=== PATIENT | male | born 1975 | race Two or more races ===

== ENCOUNTER 2024-08-29 21:28 | Inpatient (IN) | payer OTHER ==
[~2024-08-29] VITALS: Ht 172.7 cm; Wt 102.7 kg
[~2024-08-29 21:28] MED LIST: APRE30TA PO; ATOR80TA PO; CLOP75TA70 PO; LISI-275 PO
[2024-08-29 21:36] VITALS: PULSE 66; RESP 14; O2SAT 97
[2024-08-29] MEDS: ONDANSETRON HCL 4 MG/2 ML VIAL IV ONE (21:44)
[2024-08-29] MEDS: MORPHINE SULFATE 4 MG/ML SYR/VIAL IV ONE (21:44)
[2024-08-29] MEDS ORDERED: HEPARIN DRIP/D5W 100UNITS/ML 250 ML IV SCH (21:45)
[2024-08-29] MEDS: HEPARIN SODIUM (PORCINE) 5000 UNITS/ML 1ML VIAL IV ONE (21:45)
[2024-08-29] MEDS: SODIUM CHLORIDE 0.9% 1,000 ML IV ONE (21:48)
[2024-08-29 21:49] LABS: Basophils # (auto) 0.1 10 ^3/uL (0-0.2); Basophils % (auto) 0.4 % (0.0-2.0); Eosinophils # (auto) 0.1 10 ^3/uL (0-0.8); Eosinophils % (auto) 0.4 % (0.0-7.0); Hematocrit 47.5 % (41.0-53.0); Hemoglobin 16.2 g/dL (13.5-17.5); Lymphocytes # (auto) 1.8 10 ^3/uL (0.4-5.4); Lymphocytes % (auto) 11.5 % (10.0-50.0); Mean Corpuscular Hemoglobin 30.3 pg (28.0-32.0); Mean Corpuscular Volume 89.2 fL (80.0-100.0); Monocytes # (auto) 0.7 10 ^3/uL (0-1.3); Monocytes % (auto) 4.4 % (0.0-12.0); Neutrophils # (auto) 12.9 10 ^3/uL (1.6-8.6); Neutrophils % (auto) 83.3 % (37.0-80.0); Platelet Count (auto) 225 10^3/uL (140-450); Red Blood Cells 5.33 10^6/uL (4.5-5.90); Red Cell Distribution Width 13.7 % (11.8-14.3); White Blood Cell 15.6 10^3/uL (4.4-10.8)
[2024-08-29 21:58] LABS: Chloride 107 mmol/L (98-107); Potassium 4.4 mmol/L (3.5-5.1); Sodium 140 mmol/L (136-145)
[2024-08-29 21:59] LABS: Anion Gap 9 (5-15); Carbon Dioxide 24 mmol/L (20-31)
[2024-08-29 22:00] LABS: Calcium 10.1 mg/dL (8.7-10.4)
[2024-08-29 22:04] LABS: BUN/Creatinine Ratio 9.5 (10.0-20.0); Blood Urea Nitrogen 12 mg/dL (9-23); Glucose 165 mg/dL (74-106)
[2024-08-29] MEDS: ANGIOMAX 250 MG VIAL IV ONE (22:04)
[2024-08-29] MEDS: fentaNYL CITRATE 100 MCG/2 ML VL ONE (22:04)
[2024-08-29] MEDS: SODIUM CHL 0.9% 50 ML ONE (22:04)
[2024-08-29] MEDS: MIDAZOLAM HCL 2MG/2ML 2ml VIAL (1mg/ml) ONE (22:04)
[2024-08-29] MEDS: HEPARIN IN NS 1000Units/500mL 1,500 ML ONE (22:05)
[2024-08-29] MEDS: IODIXANOL 320MG/ML 100ML BTL IV ONE (22:05)
[2024-08-29] MEDS: LIDOCAINE 2%HCL (LOCAL ANESTH.) INJ 20ML MDV ONE (22:05)
[2024-08-29 22:24] LABS: Prothrombin Time 10.6 sec (9.3-11.8)
[2024-08-29] MEDS: ATROPINE SULF 1 MG/10ml SYR ONE (22:40)
[2024-08-29 23:20] VITALS: BP 135/87; PULSE 77; RESP 20; TEMP 98.1; O2SAT 100
[2024-08-29] MEDS: CLOPIDOGREL BISULFATE 75 MG TAB ONE ×2 (23:28)
[2024-08-29] MEDS ORDERED: NITROGLYCERIN 0.4 MG SL TAB SL PRN (23:30)
[2024-08-29 23:35] VITALS: BP 134/88; PULSE 64; RESP 20; O2SAT 100
[2024-08-29 23:50] VITALS: BP 139/85; PULSE 61; RESP 20; O2SAT 100
[2024-08-30] VITALS (9 sets, daily range): BP systolic 100–131; BP diastolic 51–95; PULSE 56–80; RESP 18–20; TEMP 98–98.8; O2SAT 94–100
[2024-08-30] MEDS: MORPHINE SULFATE INJ 2 MG/ml SYRG IV PRN ×2 (00:54→14:35)
[2024-08-30] MEDS: SODIUM CHLORIDE 0.9% 1,000 ML IV SCH (00:54)
[2024-08-30] MEDS: HYDROcodone-ACET 5/325MG TAB PO PRN (06:10)
[2024-08-30 07:16] LABS: Basophils # (auto) 0 10 ^3/uL (0-0.2); Basophils % (auto) 0.1 % (0.0-2.0); Eosinophils # (auto) 0 10 ^3/uL (0-0.8); Hematocrit 43.4 % (41.0-53.0); Hemoglobin 14.6 g/dL (13.5-17.5); Lymphocytes % (auto) 6.4 % (10.0-50.0); Mean Corpuscular Hemoglobin 30.3 pg (28.0-32.0); Mean Corpuscular Hgb Conc. 33.5 g/dL (32.0-36.0); Mean Corpuscular Volume 90.3 fL (80.0-100.0); Monocytes # (auto) 0.4 10 ^3/uL (0-1.3); Monocytes % (auto) 2.9 % (0.0-12.0); Neutrophils # (auto) 13.6 10 ^3/uL (1.6-8.6); Neutrophils % (auto) 90.6 % (37.0-80.0); Nucleated Red Blood Cells % 0.1 %; Platelet Count (auto) 193 10^3/uL (140-450); Red Blood Cells 4.81 10^6/uL (4.5-5.90); Red Cell Distribution Width 13.7 % (11.8-14.3)
[2024-08-30 07:18] LABS: Alanine Aminotransferase 28 U/L (7-40); Alkaline Phosphatase 97 U/L (46-116); Anion Gap 11 (5-15); Aspartate Aminotransferase 59 U/L (13-40); BUN/Creatinine Ratio 11.2 (10.0-20.0); Blood Urea Nitrogen 13 mg/dL (9-23); Calcium 9.7 mg/dL (8.7-10.4); Carbon Dioxide 23 mmol/L (20-31); Chloride 107 mmol/L (98-107); Glucose 185 mg/dL (74-106); Potassium 3.7 mmol/L (3.5-5.1); Sodium 141 mmol/L (136-145)
[2024-08-30 07:19] LABS: Bilirubin, Total 0.7 mg/dL (0.2-1.0); Total Protein 6.9 g/dL (5.7-8.2)
[2024-08-30] MEDS: ASPirin 81 mg TAB PO SCH (09:35)
[2024-08-30] MEDS: cefTRIAXone 1GM/50ML D5W 50 ML IV SCH (09:36)
[2024-08-30] MEDS: CLOPIDOGREL BISULFATE 75 MG TAB PO SCH (09:36)
[2024-08-30] MEDS: ATORVASTATIN 20 MG TAB PO SCH (09:36)
[2024-08-30] MEDS: METOPROLOL SUCCINATE XL 50 MG TAB PO SCH (09:38)
[2024-08-30] MEDS: ENOXAPARIN SOD 40 MG/0.4 ML SYRINGE SC SCH (09:54)
[2024-08-30] MEDS: FAMOTIDINE (10MG/ML) 2ML VL IV ONE (13:53)
[2024-08-30] MEDS: EPTIFIBATIDE DRIP(0.75MG/ML) 100 ML IV SCH ×2 (15:52→20:25)
[2024-08-31] MEDS: TEMAZEPAM 15 MG CAP PO PRN (00:03)
[2024-08-31 05:00] VITALS: BP 109/67; PULSE 60; RESP 16; TEMP 98.7; O2SAT 97
[2024-08-31 05:50] LABS: Alanine Aminotransferase 29 U/L (7-40); Alkaline Phosphatase 83 U/L (46-116); Anion Gap 6 (5-15); Aspartate Aminotransferase 101 U/L (13-40); Blood Urea Nitrogen 10 mg/dL (9-23); Calcium 9.2 mg/dL (8.7-10.4); Carbon Dioxide 26 mmol/L (20-31); Chloride 107 mmol/L (98-107); Glucose 94 mg/dL (74-106); Potassium 3.6 mmol/L (3.5-5.1); Sodium 139 mmol/L (136-145)
[2024-08-31 05:51] LABS: Basophils # (auto) 0 10 ^3/uL (0-0.2); Basophils % (auto) 0.3 % (0.0-2.0); Eosinophils # (auto) 0 10 ^3/uL (0-0.8); Eosinophils % (auto) 0.3 % (0.0-7.0); Hematocrit 42.7 % (41.0-53.0); Hemoglobin 14.4 g/dL (13.5-17.5); Lymphocytes # (auto) 2.2 10 ^3/uL (0.4-5.4); Lymphocytes % (auto) 17.2 % (10.0-50.0); Mean Corpuscular Hemoglobin 30.8 pg (28.0-32.0); Mean Corpuscular Hgb Conc. 33.7 g/dL (32.0-36.0); Mean Corpuscular Volume 91.2 fL (80.0-100.0); Monocytes % (auto) 7.4 % (0.0-12.0); Neutrophils # (auto) 9.8 10 ^3/uL (1.6-8.6); Neutrophils % (auto) 74.8 % (37.0-80.0); Nucleated Red Blood Cells % 0.1 %; Platelet Count (auto) 170 10^3/uL (140-450); Red Blood Cells 4.69 10^6/uL (4.5-5.90); Red Cell Distribution Width 13.9 % (11.8-14.3); Total Protein 6.5 g/dL (5.7-8.2); White Blood Cell 13.1 10^3/uL (4.4-10.8)
[2024-08-31 08:00] VITALS: PULSE 60
[2024-08-31 09:00] VITALS: BP 124/76; PULSE 63; RESP 20; TEMP 98.8; O2SAT 95
[2024-08-31] MEDS: POTASSIUM EFFERVESENT TAB 25 MEQ PO ONE (10:48)
[2024-08-31] MEDS: HYDROcodone-ACET 5/325MG TAB PO PRN (10:48)
[2024-08-31 10:54] LABS: Triglycerides 92 mg/dL (< 150)
[2024-08-31 10:55] LABS: LDL Cholesterol 74 mg/dL (< 100)
[2024-08-31 10:56] LABS: Cholesterol 113 mg/dL (< 200); HDL Cholesterol 33 mg/dL (40-59)
[2024-08-31 12:29] LABS: Urine Bacteria None Seen /hpf (None Seen)
[2024-08-31 12:43] LABS: COVID19 ANTIGEN SOFIA FIA NEGATIVE (NEGATIVE)
[2024-08-31 12:46] LABS: Urine Blood Negative /uL (Negative); Urine Clarity Clear (Clear); Urine Color Light-Yellow (Yellow); Urine Protein, UAD Negative (Negative); Urine Specific Gravity 1.015 (1.001-1.035); Urine Urobilinogen Normal (Negative); Urine WBC <1 /hpf (0 - 3)
[2024-08-31 13:00] VITALS: BP 100/63; PULSE 64; RESP 20; TEMP 98.8; O2SAT 93
[2024-08-31 13:05] LABS: Amphetamine Screen, Urine Neg (NEGATIVE); Benzodiazephine Screen, Urine Pos (NEGATIVE)
[2024-08-31 13:06] LABS: Barbiturate Scree,Urine Neg (NEGATIVE); Cannabinoid Screen, Urine Neg (NEGATIVE); Cocaine Screen, Urine Neg (NEGATIVE); Opiate Scree,Urine Neg (NEGATIVE); Phencyclidine Screen, Urine Neg (NEGATIVE)
[2024-08-31] MEDS: ACETAMINOPHEN 500 MG TAB PO PRN (14:27)
[2024-08-31 16:39] VITALS: BP 105/69; PULSE 74; RESP 17; TEMP 98.2; O2SAT 95
[2024-08-31 20:00] VITALS: PULSE 68; PULSE 76; RESP 17; O2SAT 96
[2024-09-01] VITALS (7 sets, daily range): BP systolic 101–127; BP diastolic 64–70; PULSE 54–73; RESP 16–20; TEMP 98.1–99.6; O2SAT 95–100
[2024-09-01] MEDS: CHOLECALCIFEROL (VITD3) 1,000UNIT=25mCg TAB PO SCH (09:54)
[2024-09-02 01:00] VITALS: BP 96/68; PULSE 64; RESP 19; TEMP 98.6; O2SAT 98
[2024-09-02 05:00] VITALS: BP 103/68; PULSE 60; RESP 18; TEMP 98.3; O2SAT 98
[2024-09-02 08:00] VITALS: PULSE 61
[2024-09-02 08:35] VITALS: BP 100/57; PULSE 51; RESP 20; TEMP 98.5; O2SAT 99
[2024-09-02 12:38] VITALS: BP 105/64; PULSE 66; RESP 20; TEMP 98.6; O2SAT 95
[2024-09-02] MEDS ORDERED: CALC-10 PO (15:36)
[2024-09-02] MEDS ORDERED: ASPI-325 PO (15:36)
[2024-09-02] MEDS ORDERED: METO-6 PO (15:36)
[2024-09-02] MEDS ORDERED: ATOR20TA50 PO (15:36)
[2024-09-02] MEDS ORDERED: CLOP75TA70 PO (15:36)
[2024-09-02 16:48] VITALS: BP 120/77; PULSE 61; RESP 20; TEMP 98.7; O2SAT 98
== END 2024-09-02 17:14 | disposition home or self-care (01) | DRG 321 ==
LOC: ER 21:28 → EDBD 21:28 → TELE 23:30 → TELE-WESTW 23:41
PROVIDERS: ADMIT Internal Medicine; ATTEND Internal Medicine
PROC: 027034Z Dilation of Coronary Artery, One Artery with Drug-eluting Intraluminal Device, Percutaneous Approach (ICD-10-PCS; principal; 2024-08-29)
PROC: 02C03ZZ Extirpation of Matter from Coronary Artery, One Artery, Percutaneous Approach (ICD-10-PCS; 2024-08-29)
PROC: 04HY32Z Insertion of Monitoring Device into Lower Artery, Percutaneous Approach (ICD-10-PCS; 2024-08-29)
PROC: 4A023N7 Measurement of Cardiac Sampling and Pressure, Left Heart, Percutaneous Approach (ICD-10-PCS; 2024-08-29)
PROC: B211YZZ Fluoroscopy of Multiple Coronary Arteries using Other Contrast (ICD-10-PCS; 2024-08-29)
PROC: B215YZZ Fluoroscopy of Left Heart using Other Contrast (ICD-10-PCS; 2024-08-29)
PROC: B41FYZZ Fluoroscopy of Right Lower Extremity Arteries using Other Contrast (ICD-10-PCS; 2024-08-29)
PROC: B240ZZ3 Ultrasonography of Single Coronary Artery, Intravascular (ICD-10-PCS; 2024-08-29)
DX: I21.19 ST elevation (STEMI) myocardial infarction involving other coronary artery of inferior wall (principal); I50.41 Acute combined systolic (congestive) and diastolic (congestive) heart failure; R57.0 Cardiogenic shock; I47.20 Ventricular tachycardia, unspecified; N17.9 Acute kidney failure, unspecified; I11.0 Hypertensive heart disease with heart failure; E66.9 Obesity, unspecified; E78.5 Hyperlipidemia, unspecified; I25.10 Atherosclerotic heart disease of native coronary artery without angina pectoris; E55.9 Vitamin D deficiency, unspecified; Z95.5 Presence of coronary angioplasty implant and graft; Z79.82 Long term (current) use of aspirin; Z79.899 Other long term (current) drug therapy; Z68.34 Body mass index [BMI] 34.0-34.9, adult
CPT/HCPCS: 36415; 71045; 75710; 80048; 80053; 80061; 80307; 81001; 82306; 82607; 83036; 83735; 83880; 84439; 84443; 85025; 85610; 85730; 87426; 92941; 92973; 92978; 93005; 93306; 93458; 97110; 97116; 97163; 97530; 99152; 99291; G0378; J2250; J2405; J3490; Q9967